=== PATIENT | male | born 1965 | race Caucasian/White ===

== ENCOUNTER → 2019-02-01 | Outpatient (CLI) | payer OTHER | LOC: FIMAGING 15:12 | PROVIDERS: ATTEND Neurological Surgery | DX: M51.36 Other intervertebral disc degeneration, lumbar region (principal); M43.16 Spondylolisthesis, lumbar region ==

== ENCOUNTER 2019-02-05 08:42 | Inpatient (IN) | payer OTHER ==
--- NOTE | 2019-02-05 06:57 | PDHPUP ---
History & Physical Update H&P update statement: This history and physical update is based on an assessment of the patient which was completed after admission or registration (within 24 hours), but prior to the surgery/procedure. H&P update: H&P reviewed & patient examined, no change in patient's condition since H&P completed
[2019-02-05] MEDS ORDERED: ceFAZolin 2 GM/DEXTROSE 100 ML IV ONE (09:04)
[2019-02-05] MEDS ORDERED: ACETAMINOPHEN 500 MG TAB PO ONE (09:04)
[2019-02-05] MEDS ORDERED: GABAPENTIN 300 MG CAP PO ONE (09:04)
[2019-02-05] MEDS ORDERED: LR 1,000 ML IV ONE (09:05)
[2019-02-05] MEDS ORDERED: THROMBIN (BOVINE) 5,000 UNIT VIAL TP ONE (09:28)
[2019-02-05] MEDS ORDERED: BUPIVACAINE/EPI 0.25% 30 ML SDV ONE ×2 (09:29→09:54)
[2019-02-05] MEDS ORDERED: BACITRACIN 50,000 UNITS/10 ML SYR IRR ONE ×2 (09:30→09:55)
[2019-02-05] MEDS ORDERED: CHLORHEXIDINE GLUC HIBICLENS 118 ML BTL TP ONE (09:32)
[2019-02-05 09:44] LABS: PLATELET COUNT 378 10^3/uL (150-400)
--- NOTE | 2019-02-05 10:45 | PDANEPAE ---
ANE History of Present Illness Right leg pain for L3-4 TLIF ANE Past Medical History - Cardiovascular History Hx Hypertension: No Hx Arrhythmias: No Hx Chest Pain: No Hx Coronary Artery / Peripheral Vascular Disease: No Hx CHF / Valvular Disease: No Hx Palpitations: No - Pulmonary History Hx COPD: No Hx Asthma/Reactive Airway Disease: No Hx Recent Upper Respiratory Infection: No Hx Oxygen in Use at Home: No Hx Sleep Apnea: No Sleep Apnea Screening Result - Last Documented: Negative - Neurologic History Hx Cerebrovascular Accident: No Hx Seizures: No Hx Dementia: No - Endocrine History Hx Diabetes: No - Renal History Hx Renal Disorders: No - Liver History Hx Hepatic Disorders: No - Neurological & Psychiatric Hx Hx Neurological and Psychiatric Disorders: No - Cancer History Hx Cancer: No - Congenital Disorder History Hx Congenital Disorders: No - GI History Hx Gastrointestinal Disorders: No - Other Health History Other Health History: none - Chronic Pain History Chronic Pain: Yes (lower back and legs) - Surgical History Prior Surgeries: right tib/ fib repair. bilateral wrist repairs ANE Review of Systems Review of Systems: - Exercise capacity METS (RN): 6 METS ANE Patient History - Allergies Allergies/Adverse Reactions: No Known Allergies Allergy (Verified 02/02/19 15:17) - Home Medications Home medications: home medication list seen and reviewed Home Medications: Hydrocodone/Acetaminophen [Vicodin 5-300 mg Tablet] 1 - 2 each PO TID PRN [Last Taken 02/05/19] - NPO status NPO Status: no food or drink >8 hours NPO Since - Liquids (Date): 02/05/19 NPO Since - Liquids (Time): 07:00 NPO Since - Solids (Date): 02/05/19 NPO Since - Solids (Time): 23:30 - Anes Hx Anes Hx: no prior problems - Smoking Hx Smoking Status: Never smoked - Family Anes Hx Family Hx Anesthesia Complications: none ANE Labs/Vital Signs - Labs Result Diagrams: 02/05/19 09:35 - Vital Signs Blood Pressure: 149/109 Heart Rate: 100 Respiratory Rate: 20 O2 Sat (%): 97 Height: 180.34 cm Weight: 74.843 kg ANE Physical Exam - Airway Neck exam: FROM Mallampati Score: Class 2 Mouth exam: normal dental/mouth exam - Pulmonary Pulmonary: no respiratory distress - Cardiovascular Cardiovascular: regular rate and rhythym - ASA Status ASA Status: I ANE Anesthesia Plan Anesthesia Plan: general endotracheal anesthesia
[2019-02-05] MEDS ORDERED: MIDAZOLAM 2 MG/2 ML VIAL IVP ONE (10:50)
[2019-02-05] MEDS ORDERED: REMIFENTANIL HCL 1 MG VIAL ONE ×2 (11:03→13:06)
[2019-02-05] MEDS ORDERED: PROPOFOL 200 MG/20 ML VIAL ONE (11:04)
[2019-02-05] MEDS ORDERED: PROPOFOL/EMULSION 500 MG/50 ML BOTTLE IV ONE ×2 (11:04→13:06)
[2019-02-05] MEDS ORDERED: fentaNYL 250 MCG/5 ML INJ ONE (11:04)
[2019-02-05] MEDS ORDERED: ROCURONIUM 50 MG/5 ML VIAL ONE (11:08)
[2019-02-05] MEDS ORDERED: LIDOCAINE 2% 5 ML SDV ONE (11:09)
[2019-02-05] MEDS ORDERED: morphINE PCA 30 MG/30 ML PCA IV PRN (11:26)
[2019-02-05] MEDS ORDERED: LACTULOSE 20 GM/30 ML UDCUP PO PRN (11:26)
[2019-02-05] MEDS ORDERED: BISACODYL 10 MG SUPP PR PRN (11:26)
[2019-02-05] MEDS ORDERED: ONDANSETRON 4 MG/2 ML VIAL IVP PRN ×2 (11:26→14:40)
[2019-02-05] MEDS ORDERED: NALOXONE HCL 0.4 MG/ML INJ IVP PRN ×3 (11:26→16:08)
[2019-02-05] MEDS ORDERED: HYDROmorphONE/DILAUDID 1 MG/ML INJ IVP PRN (11:26)
[2019-02-05] MEDS ORDERED: MAGNESIUM HYDROXIDE 30 ML UDCUP PO PRN (11:26)
[2019-02-05] MEDS ORDERED: diphenhydrAMINE 25 MG CAP PO PRN (11:26)
[2019-02-05] MEDS ORDERED: POLYETHYLENE GLYCOL 3350 17 GM PKT PO PRN (11:26)
[2019-02-05] MEDS ORDERED: ONDANSETRON DISINTEGRATING 4 MG TAB PO PRN (11:26)
[2019-02-05] MEDS ORDERED: HYDROCODONE/APAP 5/325 TAB PO PRN (11:26)
[2019-02-05] MEDS ORDERED: NS 1,000 ML IV SCH (11:30)
[2019-02-05] MEDS ORDERED: DEXAMETHASONE 4 MG/ML VIAL ONE (11:40)
[2019-02-05] MEDS ORDERED: ONDANSETRON 4 MG/2 ML VIAL ONE (11:40)
--- NOTE | 2019-02-05 12:50 | PDMN ---
Medical Necessity Medical [place] [facility] [place]- 2 days OP: L3/4 TLIF -- AUTH APPROVED #[id number] FOR CPTS [id number]- INPT
--- NOTE | 2019-02-05 15:05 | POSTOPPROG ---
Post Op Note Date of Operation: 02/05/19 Surgeon: Mamadou Amaral Content Creation Manager: ILANA Dawson Anesthesiologist: Maritza Anesthesia: GET(General Endotracheal), Local (Specify) Pre-op Diagnosis: Lumbar stenosis/pars defect L3/4 Post-op Diagnosis: Lumbar stenosis/pars defect L3/4 Indication: RLE pain/pars defect Procedure: TLIF L3/4 Findings: see op report Inf/Abcess present in the surg proc area at time of surgery?: No Depth: Deep Incisional (Fascial) EBL: 100-500 Total fluids administered: see anesthesia record Complications: none Bowel Protocol: Yes Clean Closure Performed: Yes Drains: Junior Leger
--- NOTE | 2019-02-05 15:08 | SOAPPROG ---
SOAP Progress Note Assessment/Plan: Post Op Visit: S: Awake and alert. NAD. Pt with expected lower back pain O: AFVSS/PERRLA/EOMI no droop CN 2-12 grossly intact +lt touch 5/5 BUE/BLE = CDI XIANG in place A/P: 53 yo male that is s/p TLIF L3/4 -orders in place -call with any questions or concerns -PT/OT in am -brace when out of bed -post op xrays in am -seen by Dr Amaral as well Objective: Vital Signs Temp Pulse Resp BP Pulse Ox 36.4 C 100 20 149/109 H 97 02/05/19 09:49 02/05/19 11:37 02/05/19 11:37 02/05/19 11:37 02/05/19 11:37 Laboratory Results 02/05/19 09:35 ICD10 Worksheet Patient Problems: Problems Problem Status Onset Arthrodesis status Acute Lumbar radicular pain Acute Lumbar stenosis Acute Pars defect of lumbar spine Acute - ICD10 Problem Qualifiers (1) Lumbar stenosis Qualifiers: Neurogenic claudication status: with neurogenic claudication Qualified Code (s): M48.062 - Spinal stenosis, lumbar region with neurogenic claudication (2) Pars defect of lumbar spine (3) Lumbar radicular pain (4) Arthrodesis status
--- NOTE | 2019-02-05 15:31 | POSTANESTH ---
Post Anesthetic Evaluation Cardiovascular Status: Similar to Pre-Op Cond, Other, See Comment Level of Consciousness/Mental Status: Alert and Oriented Pain Control: Adequate, Prn Tx Ordered Nausea/Vomiting Control: Adequate, Prn Tx Ordered Complications Possibly Related to Anesthesia: None Noted
[2019-02-05] MEDS ORDERED: fentaNYL 100 MCG/2 ML INJ ONE (15:33)
[2019-02-05] MEDS: fentaNYL 100 MCG/2 ML INJ IVP PRN ×2 (15:35→15:41)
[2019-02-05] MEDS ORDERED: HYDROmorphONE/DILAUDID 1 MG/ML INJ ONE (15:40)
[2019-02-05] MEDS: HYDROmorphONE/DILAUDID 1 MG/ML INJ IVP PRN ×5 (15:46→17:30)
[2019-02-05] MEDS ORDERED: LABETALOL HCL 5 MG/ML 20 ML MDV ONE (16:10)
[2019-02-05] MEDS: LABETALOL HCL 5 MG/ML 20 ML MDV IVP PRN ×3 (16:14→16:37)
[2019-02-05] MEDS ORDERED: ENALAPRILAT DIHYDRATE 1.25 MG/ML VIAL ONE (16:55)
[2019-02-05] MEDS ORDERED: ENALAPRILAT DIHYDRATE 1.25 MG/ML VIAL IVP ONE (17:15)
[2019-02-05] MEDS ORDERED: METHOCARBAMOL 750 MG TAB ONE (17:32)
[2019-02-05] MEDS: METHOCARBAMOL 750 MG TAB PO PRN ×2 (17:33→20:21)
[2019-02-05] MEDS: ACETAMINOPHEN 500 MG TAB PO SCH ×2 (18:08→21:47)
[2019-02-05] MEDS: GABAPENTIN 300 MG CAP PO SCH ×2 (18:09→21:47)
[2019-02-05] MEDS: oxyCODONE IR 5 MG TAB PO PRN ×4 (18:25→21:47)
[2019-02-05] MEDS: ceFAZolin 2 GM/DEXTROSE 100 ML IV SCH (20:09)
[2019-02-05] MEDS: SENNOSIDES/DOCUSATE SODIUM TAB PO SCH (20:21)
[2019-02-05] MEDS: FAMOTIDINE 20 MG TAB PO SCH (20:21)
--- NOTE | 2019-02-06 01:40 | GOP ---
[f rep st] OPERATIVE REPORT DATE OF OPERATION: 02/05/2019 SURGEON: Twan Amaral MD NEUROSURGEON: Gilberto Amaral MD. AFTER SCHOOL PROGRAM DIRECTOR: Ishaan Dawson PA-C PREOPERATIVE DIAGNOSIS: Lumbar spondylolisthesis, L3-4; bilateral lumbosacral radiculopathy, L3-4; b ilateral pars defect, L3-4; severe stenosis, L3-4; right L3-4 disk herniation. POSTOPERATIVE DIAGNOSIS: Lumbar spondylolisthesis, L3-4; bilateral lumbosacral radiculopathy, L3-4; bilateral pars defect, L3-4; severe stenosis, L3-4; right L3-4 disk herniation. PROCEDURE PERFORMED: Bilateral decompression, L3-4, with a Flower decompression; removal of the abnorm al pars interarticularis bilaterally, L3-4, with a posterolateral intervertebral arthrodesis at that level (02239); posterior nonsegmental instrumentation across a single interspace, L3-4 (36579); place ment of biomechanical intervertebral device, L3-4; microscope; same-incision bone graft harvest; spin al stereotaxy. FINDINGS: ESTIMATED BLOOD LOSS: 150 cc. INDICATIONS: The patient is a middle-age gentleman with a long history of pain in the left hip (they really did not spend much time elaborating to me, but his reported that indeed he has some clerk analyst dae left-sided pain), who developed rather acute severe right-sided pain and an MRI demonstrated bila teral spondylolisthesis and a spondylolysis of L3 with about a centimeter slip at L3-4 with a small r ight-sided rostral disk extrusion underneath the exiting L3 nerve root. He also had a left lateral r ecess stenosis and foraminal stenosis at the exiting L3 nerve root on the left-hand side, and this is likely the source of his chronic left-sided symptoms, but the right was without question the more ac [place] problem. I suggested a single-level fusion. The risks of adjacent segment disease, nerve injury , spinal fluid leak were discussed. He understood these risks. He wanted to proceed. He knew there was a chance surgery would fail to eliminate his pain. He knew there was a chance of screw and hard scales failure, malposition, pseudoarthrosis, and the possible need for surgery in the future with surg veronica at other levels of the spine that could break down as result of fusion. He wanted to proceed mekhi pite those known risks. DESCRIPTION OF PROCEDURE: The patient was taken to the operating room, placed in supine position. G eneral anesthesia was begun. He was flipped prone onto the Junior table. Care was taken to pad all points of contact. His back was sterilely prepped and draped in usual fashion. A localizing x-ray was taken. A midline incision was made. It was about 5 cm in length. The subcutaneous tissue was d issected using Bovie cautery down through the fascia and a subperiosteal dissection was made down to the lamina of L3. The rostral lamina of L4 was exposed. A localizing x-ray was taken. We denuded t he bilateral L3-4 facet joints. The L3 lamina was indeed floating. We attached the Forseva referenc e frame to the L3 lamina. It was stable enough to be used as a reference frame. We placed pedicle s crews bilaterally at L3 and L4 and they all stimulated at acceptable levels. The right L3 screw, we did an angled rostrally toward the L2-3 disk, in an effort to pull that screw head down away from the L2-3 facet joint. On the left side at L3, we did not have to do that with the screw. Nevertheless, all the screws were in excellent position on the O-arm spin. We stimulated the screws. They all st imulated at acceptable levels. We put 40 mm rods down over the screws and final tightened the cap sc rews according to company specification. We shot an x-ray. We had slightly over distracted on the r ight at L3-4. We released the L3 cap screw and let it collapse a little bit and then re-tightened it to company specification. Shot another x-ray and it was in perfect position. We then removed all s oft tissue of the bone from the L3 lamina. The lamina was indeed floating. We then removed the enti re lamina and used this for autologous grafting purposes. With the microscope, we opened the ligamen merry flavum and re-resected the abnormal pars interarticularis on each side. We ensured that the L3 n erve, where it exited and went into its neural foramen, underneath where the pars defect had been, burns d been thoroughly decompressed. On the left side, we inspected the L4 nerve root as it traversed the L3-4 disk, and there was no further compression at that location. We went to the right side where w e swept the L4 nerve root medially. We ensured the L3 nerve root was totally decompressed where it e xited the neural foramen. We then incised the L3-4 disk, removed some of the disk and the cartilagin ous endplates. There was really hardly any cartilage left. We then took a ball-tip probe and delive red a huge subannular fragment that had gone rostrally up underneath the L3 root. It was not indeed huge, but it was large enough to be compressing the nerve and making it tight against the pedicle. O nce this came out, the nerve was now free and clear and loose. We then removed all the remaining sof t tissue at the disk itself and roughened the subchondral bone to create arthrodesis. We then put jarek ne autograft and BMP into the space to create arthrodesis and then sized the space and chose a 7 x 28 mm device. It was packed with BMP. It was inserted under fluoroscopic guidance expanded under fluo roscopic guidance. We then decorticated all remaining bone posterolaterally bilaterally, and both th e transverse processes of L3 and L4 were decorticated, and we traversed the remaining isthmus coming off the L3 pedicle on each side. We then decompressed the superior articular process of L4 on each s pbalo to create bony arthrodesis there. We placed bone autograft and BMP posterolaterally bilaterally, followed by a subfascial drain, and then closed the incision in multiple layers using Vicryl sutures . A running PDS was placed in the skin itself. The patient was reversed from anesthesia, extubated, and transferred to recovery room in stable condition. There were no complications. COMPLICATIONS: None. /[id number]/MODL
[2019-02-06] MEDS: oxyCODONE IR 5 MG TAB PO PRN ×4 (01:47→14:59)
[2019-02-06] MEDS: ceFAZolin 2 GM/DEXTROSE 100 ML IV SCH (03:17)
[2019-02-06] MEDS: GABAPENTIN 300 MG CAP PO SCH (06:15)
[2019-02-06] MEDS: ACETAMINOPHEN 500 MG TAB PO SCH ×2 (06:24→15:01)
--- NOTE | 2019-02-06 07:39 | NEUSURGPN ---
Date of Surgery: 02/05/19 Post Op Day: 1 Assessment/Plan: Assessment: 53 yo male that is s/p TLIF L3/4 POD #1 Plan: -pt states that his legs feel great and that he has some expected lower back pain. He states that he can walk upright. He is happy at this point -orders in place -call with any questions or concerns -PT/OT this am -brace when out of bed -post op xrays this am -XIANG to be removed later today -probable dc late this afternoon depending on how he does -seen by Dr Amaral as well Subjective: Awake and alert. NAD. Eating/drinking and voiding. No f/c/n/v/d. No burns/neck/ chest/abd or gu complaints. Objective: AFVSS/PERRLA/EOMI no droop CN 2-12 grossly intact +lt touch 5/5 BUE/BLE = CDI XIANG in place Neuro Check Frequency: per routine Urinary Catheter in Place: No - Physician Discussed Patient with Dr.: Munir Patient Seen by : Munir Neurosurgery Physical Exam - Vitals, I&O, Labs I and O 02/05/19 02/06/19 02/07/19 05:59 05:59 05:59 Intake Total 1400 295 Output Total 1270 Balance 130 295 Weight 74.843 kg Intake: Oral (ml) 150 IV Intake (ml) 1250 295 Output: Urine (ml) 1050 Toilet 1050 Estimated Blood Loss (ml) 150 XIANG Drain Output (ml) 70 #1 Junior Leger 70 Other: Number of Voids Toilet 1 Vital Signs Temp Pulse Resp BP Pulse Ox 36.7 C 80 17 128/80 H 95 02/06/19 03:02 02/06/19 03:02 02/06/19 03:02 02/06/19 03:02 02/06/19 03:02 Laboratory Results 02/05/19 09:35 ICD10 Worksheet Patient Problems: Problems Problem Status Onset Arthrodesis status Acute Lumbar radicular pain Acute Lumbar stenosis Acute Pars defect of lumbar spine Acute - ICD10 Problem Qualifiers (1) Lumbar stenosis Qualifiers: Neurogenic claudication status: with neurogenic claudication Qualified Code (s): M48.062 - Spinal stenosis, lumbar region with neurogenic claudication (2) Pars defect of lumbar spine (3) Lumbar radicular pain (4) Arthrodesis status
[2019-02-06] MEDS: SENNOSIDES/DOCUSATE SODIUM TAB PO SCH (08:53)
[2019-02-06] MEDS: FAMOTIDINE 20 MG TAB PO SCH (08:53)
[2019-02-06 11:08] VITALS: BP 121/76
[2019-02-06] MEDS: METHOCARBAMOL 750 MG TAB PO PRN (11:27)
--- NOTE | 2019-02-06 14:02 | ASMTLACE ---
LACE Length of stay for Answers: 2 days current admission Acuity / Level of Answers: Yes Care: Did the patient have an inpatient admission? Comorbidities - select Answers: Opioid dependence all that apply / Chronic pain # of Emergency department Answers: 0 visits in the last 6 months Score: 9 Date Signed: 02/06/2019 02:00 PM Electronically Signed By:SAM Chin
--- NOTE | 2019-02-06 14:03 | ASMTCMCOM ---
CM Note CM Note Notes: Pt had planned TLIF L3/4, resides with spouse. PT and OT clear pt for home. Pt medically stable for d/c, no CM d/c needs identified. Date Signed: 02/06/2019 02:02 PM Electronically Signed By:SAM Chin
[2019-02-08] MEDS ORDERED: ENOXAPARIN 40 MG/0.4 ML SYR SC SCH (09:00)
== END 2019-02-06 15:40 | disposition home or self-care (01) | DRG 460 ==
LOC: F3N 08:42
PROVIDERS: ADMIT Neurological Surgery; ATTEND Neurological Surgery
DX: M51.16 Intervertebral disc disorders with radiculopathy, lumbar region (principal); M43.16 Spondylolisthesis, lumbar region; M48.062 Spinal stenosis, lumbar region with neurogenic claudication
CPT/HCPCS: 97161-GP; 97165-GO; 97535-GO; C1713; J0690; J1100; J1170; J2250; J2405; J2704; J3010